=== PATIENT | male | born 1960 | race Caucasian/White ===

== ENCOUNTER 2017-05-15 10:42 | Emergency (ER) | payer MEDICARE, OTHER ==
[~2017-05-15] VITALS: Ht 182.9 cm; Wt 213.2 kg
[~2017-05-15 10:42] MED LIST: DOXYCYCLINE HY100 MG PO; FLUOXETINE HCL20 M1 PO; GLYBURIDE-METF1 EACH PO; LASIX40 MG PO; METFORMIN HCL500 MG PO; POTASSIUM CHLO20 ME1 PO; POTASSIUM CHLO20 MEQ; PRINIVIL20 MG PO; PYRIDIUM100 MG PO; SIMVASTATIN20 MG PO
[2017-05-15 13:57] LABS: BASOPHILS % 0.4 % (0.0-1.0); EOSINOPHILS # (AUTO) 0.1 (0.0-0.4); HEMATOCRIT 44.6 % (38.2-49.6); HEMOGLOBIN 14.8 g/dL (14.0-18.0); LYMPHOCYTES # (AUTO) 1.7 (1.0-3.2); LYMPHOCYTES % 15.2 % (18.0-39.1); MEAN CORPUSCULAR HEMOGLOBIN 27.2 pg (28-32); MEAN CORPUSCULAR HGB CONC 33.2 g/dL (31-35); MEAN CORPUSCULAR VOLUME 81.8 fL (81-99); MONOCYTES # (AUTO) 0.9 (0.2-0.8); NEUTROPHILS # (AUTO) 8.2 (2.1-6.9); NEUTROPHILS % 74.9 % (38.7-80.0); PLATELET COUNT 313 x10e3/uL (140-360); RED BLOOD COUNT 5.45 x10e6/uL (4.3-5.7); RED CELL DISTRIBUTION WIDTH 13.2 % (11.7-14.4)
[2017-05-15 14:22] LABS: ALANINE AMINOTRANSFERASE 11 IU/L (0-55); ALBUMIN 3.2 g/dL (3.5-5.0); ALBUMIN/GLOBULIN RATIO 0.6 (0.8-2.0); ALKALINE PHOSPHATASE 73 IU/L (40-150); ANION GAP 12.6 mmol/L (8-16); BLOOD UREA NITROGEN 9 mg/dL (7-26); BUN/CREATININE RATIO 10 (6-25); CALCIUM 9.3 mg/dL (8.4-10.2); CARBON DIOXIDE 26 mmol/L (22-29); CHLORIDE 98 mmol/L (98-107); CREATININE, SERUM 0.87 mg/dL (0.72-1.25); EST GLOMERULAR FILTRATION RATE > 60 ML/MIN (60-); GLUCOSE 185 mg/dL (74-118); POTASSIUM 3.6 mmol/L (3.5-5.1); SODIUM 133 mmol/L (136-145)
== END 2017-05-15 18:38 | disposition home or self-care (01) ==
LOC: ER 10:42
DX: L02.415 Cutaneous abscess of right lower limb (principal); L03.115 Cellulitis of right lower limb; I10 Essential (primary) hypertension; E11.9 Type 2 diabetes mellitus without complications; E78.5 Hyperlipidemia, unspecified; K21.9 Gastro-esophageal reflux disease without esophagitis; E66.9 Obesity, unspecified
CPT/HCPCS: 36415; 80053; 85025; 99283

== ENCOUNTER 2017-06-29 08:08 | Emergency (ER) | payer MEDICARE ==
[~2017-06-29] VITALS: Ht 182.9 cm; Wt 213.2 kg
[2017-06-29] MEDS: CLINDAMYCIN PHOS 600 MG/ 4 ML VIAL IM ONE ×2 (09:42→10:00)
[2017-06-29 10:04] VITALS: BP 116/66
[2017-06-29] MEDS ORDERED: CLINDAMYCIN PHOS 600 MG/ 4 ML VIAL IM ONE (10:30)
== END 2017-06-29 10:21 | disposition home or self-care (01) ==
LOC: ER 08:08
DX: L03.221 Cellulitis of neck (principal); I10 Essential (primary) hypertension; E11.9 Type 2 diabetes mellitus without complications; E78.5 Hyperlipidemia, unspecified
CPT/HCPCS: 99282

== ENCOUNTER 2017-09-23 14:31 | Emergency (ER) | payer MEDICARE ==
[~2017-09-23] VITALS: Ht 182.9 cm; Wt 186.0 kg
--- OUTSIDE RECORDS SUMMARY | 2017-09-23 14:34 | XMS REPORT | Continuity of Care Document ---
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 No 03/27/12 11:18am If yes, is advance directive on file with [facility]? No 12/11/08 8:24am If not on file with [facility] will patient provide a copy? No 03/27/12 10:03am Do you have a Directive to Physician? No 06/29/17 8:58am Do you have a Medical Power of Director Of Trauma? No 06/29/17 8:58am Do you have an out of hospital Do Not Resuscitate Order? No 06/29/17 8:58am Do you have any special needs we should be aware of? No 06/29/17 8:58am Do you have a support person here with you today? No 06/29/17 8:58am Did patient receive Notice of Privacy Practices? Yes 06/29/17 8:58am Did patient receive patient rights and responsibilities? Yes 06/29/17 8:58am Problems Medical Problem Onset Date Status Cellulitis Unknown Acute Subcutaneous abscess Unknown Acute Medications Current Home Medications Medication Dose Units Route Directions Days Qty Instructions Start Date Doxycycline Hyclate 100 Mg Capsule 100 Mg Oral Twice A Day Fluoxetine Hcl 20 Mg Tablet 20 Mg Oral Daily Furosemide (Lasix) 40 Mg Tablet 40 Mg Oral Daily Lisinopril (Prinivil) 20 Mg Tablet 20 Mg Oral Twice A Day Metformin Hcl 500 Mg Tablet 500 Mg Oral Twice A Day 60 Tab Phenazopyridine Hcl (Pyridium) 100 Mg Tablet 200 Mg Oral Three Times A Day Potassium Chloride 20 Meq Tab.er.prt 20 Meq Oral Daily Simvastatin 20 Mg Tablet 20 Mg Oral Daily Past Home Medications Medication Directions Ordered Status Glyburide/Metformin Hcl (Glyburide-Metformin 2.5-500 Mg) 1 Each Tablet, 2.5 - 500 Mg Oral Twice A Day Discontinued Social History Social History Problem Response Recorded Date/Time Onset Date Status Hx Psychiatric Problems Yes 03/27/2012 11:18am Not Applicable Not Applicable Hx Depression Yes 03/27/2012 11:18am Not Applicable Not Applicable Smoking Status Start Date Stop Date Never Smoker Hospital Discharge Instructions No hospital discharge instruction information available. Plan of Care Discharge Date 06/29/17 10:21am Disposition HOME, SELF-CARE Condition at Discharge Improved Instructions/Education Provided Cellulitis Forms Provided Work/School Excuse Prescriptions See Medication Section Referrals HOMERO MARTINI MD Address: [address] [place] [id number] Additional Instructions/Education Diagnosis: Cellulitis of the neck Prescription: Cleocin 600 mg every 8 hours Take medication as directed. Be sure you finish all your antibiotics. Follow up with your doctor in 2-3 days if needed. Return to ER for worsening symptoms or any other concerns or problems Functional Status No functional status information available. Allergies, Adverse Reactions, Alerts Allergen Type Severity Reaction Status Last Updated Penicillin Allergy Unknown Active 05/15/17 PENIC Allergy Unknown Active 05/15/17 Immunizations No immunization information available. Vital Signs Acute Vital Signs Vital Response Date/Time Temperature (Fahrenheit) 98.2 degrees F (97.6 - 99.5) 06/29/2017 10:04am Pulse Pulse Rate (adult) 73 bpm (60 - 90) 06/29/2017 10:04am Respiratory Rate 16 bpm (12 - 24) 06/29/2017 10:04am Blood Pressure 116/66 mm Hg 06/29/2017 10:04am Height 6 ft 0 in 06/29/2017 8:18am Weight 470 lb 06/29/2017 8:18am Body Mass Index 63.7 kg/m^2 06/29/2017 8:18am Results Laboratory Results Test Name Result Units Flags Reference Collection Date/Time Result Date/ Time Comments White Blood Count 10.91 x10e3/uL H 4.8-10.8 05/15/2017 12:52pm 2017 1:57pm Red Blood Count 5.45 x10e6/uL 4.3-5.7 05/15/2017 12:52pm 05/15/2017 1: 57pm Hemoglobin 14.8 g/dL 14.0-18.0 05/15/2017 12:52pm 05/15/2017 1:57pm Hematocrit 44.6 % 38.2-49.6 05/15/2017 12:52pm 05/15/2017 1:57pm Mean Corpuscular Volume 81.8 fL 81-99 05/15/2017 12:52pm 05/15/2017 1: 57pm Mean Corpuscular Hemoglobin 27.2 pg L 28-32 05/15/2017 12:52pm 2017 1:57pm Mean Corpuscular Hemoglobin Concent 33.2 g/dL 31-35 05/15/2017 12:52pm 05/15/2017 1:57pm Red Cell Distribution Width 13.2 % 11.7-14.4 05/15/2017 12:52pm 2017 1:57pm Platelet Count 313 x10e3/uL 140-360 05/15/2017 12:52pm 05/15/2017 1: 57pm Neutrophils (%) (Auto) 74.9 % 38.7-80.0 05/15/2017 12:52pm 05/15/2017 1 :57pm Lymphocytes (%) (Auto) 15.2 % L 18.0-39.1 05/15/2017 12:52pm 05/15/2017 1:57pm Monocytes (%) (Auto) 8.0 % 4.4-11.3 05/15/2017 12:52pm 05/15/2017 1: 57pm Eosinophils (%) (Auto) 1.0 % 0.0-6.0 05/15/2017 12:52pm 05/15/2017 1: 57pm Basophils (%) (Auto) 0.4 % 0.0-1.0 05/15/2017 12:52pm 05/15/2017 1: 57pm IM GRANULOCYTES % 0.5 % 0.0-1.0 05/15/2017 12:52pm 05/15/2017 1:57pm Neutrophils # (Auto) 8.2 H 2.1-6.9 05/15/2017 12:52pm 05/15/2017 1: 57pm Lymphocytes # (Auto) 1.7 1.0-3.2 05/15/2017 12:52pm 05/15/2017 1: 57pm Monocytes # (Auto) 0.9 H 0.2-0.8 05/15/2017 12:52pm 05/15/2017 1:57pm Eosinophils # (Auto) 0.1 0.0-0.4 05/15/2017 12:52pm 05/15/2017 1: 57pm Basophils # (Auto) 0.0 0.0-0.1 05/15/2017 12:52pm 05/15/2017 1:57pm Absolute Immature Granulocyte (auto 0.06 x10e3/uL 0-0.1 05/15/2017 12: 52pm 05/15/2017 1:57pm Sodium Level 133 mmol/L L 136-145 05/15/2017 12:52pm 05/15/2017 2:26pm Potassium Level 3.6 mmol/L 3.5-5.1 05/15/2017 12:52pm 05/15/2017 2: 26pm Chloride Level 98 mmol/L 98-107 05/15/2017 12:52pm 05/15/2017 2:26pm Carbon Dioxide Level 26 mmol/L 22-29 05/15/2017 12:52pm 05/15/2017 2: 26pm Anion Gap 12.6 mmol/L 8-16 05/15/2017 12:52pm 05/15/2017 2:26pm Blood Urea Nitrogen 9 mg/dL 7-05/15/2017 12:52pm 05/15/2017 2:26pm Creatinine 0.87 mg/dL 0.72-1.25 05/15/2017 12:52pm 05/15/2017 2:26pm BUN/Creatinine Ratio 10 6-25 05/15/2017 12:52pm 05/15/2017 2:26pm Estimat Glomerular Filtration Rate > 60 ML/MIN 60- 05/15/2017 12:52pm 05/15/2017 2:26pm Ranges were taken from the National Kidney Disease Education Program and the National Kidney Foundation literature. Reference ranges: 60 or greater: Normal 16-59 (for 3 consecutive months): Chronic kidney disease 15 or less: Kidney failure Glucose Level 185 mg/dL H 74-118 05/15/2017 12:52pm 05/15/2017 2:26pm Calcium Level 9.3 mg/dL 8.4-10.2 05/15/2017 12:52pm 05/15/2017 2:26pm Total Bilirubin 0.8 mg/dL 0.2-1.2 05/15/2017 12:52pm 05/15/2017 2:26pm Aspartate Amino Transf (AST/SGOT) 11 IU/L 5-34 05/15/2017 12:52pm 05/15 2:26pm Alanine Aminotransferase (ALT/SGPT) 11 IU/L 0-55 05/15/2017 12:52pm 03/2018 2:26pm Total Protein 8.2 g/dL H 6.5-8.1 05/15/2017 12:52pm 05/15/2017 2:26pm Albumin 3.2 g/dL L 3.5-5.0 05/15/2017 12:52pm 05/15/2017 2:26pm Globulin 5.0 g/dL H 2.3-3.5 05/15/2017 12:52pm 05/15/2017 2:26pm Albumin/Globulin Ratio 0.6 L 0.8-2.0 05/15/2017 12:52pm 05/15/2017 2: 26pm Alkaline Phosphatase 73 IU/L 40-150 05/15/2017 12:52pm 05/15/2017 2: 26pm Procedures Procedure Status Date Provider(s) DRAINAGE OF SKIN ABSCESS Completed 05/15/17 CNOCEPCIÓN PHILLIP MD Encounters Encounter Location Arrival/Admit Date Discharge/Depart Date Attending Provider Departed Emergency Room [facility] 06/29/17 8:08am 10:21am ASUNCION SARABIA MD Departed Emergency Room [facility] 05/15/17 10:42am 05/15 6:38pm CONCEPCIÓN PHILLIP MD
[2017-09-23] MEDS ORDERED: ADENOSINE 6MG/2ML 4 ML ONE (14:41)
[2017-09-23] MEDS ORDERED: SODIUM CHLORIDE 0.9% 1000ML 1,000 ML ONE (14:42)
[2017-09-23] MEDS ORDERED: ADENOSINE 6 MG/2 ML VIAL IV ONE (14:45)
[2017-09-23] MEDS ORDERED: ASPIRIN 81 MG CHEW TAB PO ONE (14:45)
[2017-09-23 14:57] LABS: BASOPHILS # (AUTO) 0.1 (0.0-0.1); BASOPHILS % 0.8 % (0.0-1.0); EOSINOPHILS # (AUTO) 0.2 (0.0-0.4); EOSINOPHILS % 1.9 % (0.0-6.0); HEMATOCRIT 42.6 % (38.2-49.6); HEMOGLOBIN 14.1 g/dL (14.0-18.0); LYMPHOCYTES # (AUTO) 1.8 (1.0-3.2); LYMPHOCYTES % 19.1 % (18.0-39.1); MEAN CORPUSCULAR HEMOGLOBIN 27.5 pg (28-32); MEAN CORPUSCULAR HGB CONC 33.1 g/dL (31-35); MONOCYTES # (AUTO) 0.7 (0.2-0.8); MONOCYTES % 7.5 % (4.4-11.3); NEUTROPHILS # (AUTO) 6.5 (2.1-6.9); NEUTROPHILS % 70.3 % (38.7-80.0); PLATELET COUNT 244 x10e3/uL (140-360); RED BLOOD COUNT 5.13 x10e6/uL (4.3-5.7); RED CELL DISTRIBUTION WIDTH 13.3 % (11.7-14.4)
[2017-09-23 15:05] LABS: INR 1.16; PROTHROMBIN TIME 13.9 seconds (11.9-14.5)
[2017-09-23 15:06] LABS: PARTIAL THROMBOPLASTIN TIME 32.6 seconds (23.8-35.5)
[2017-09-23 15:13] LABS: ALANINE AMINOTRANSFERASE 16 IU/L (0-55); ALBUMIN 3.5 g/dL (3.5-5.0); ALBUMIN/GLOBULIN RATIO 0.8 (0.8-2.0); ALKALINE PHOSPHATASE 77 IU/L (40-150); BLOOD UREA NITROGEN 15 mg/dL (7-26); BUN/CREATININE RATIO 12 (6-25); CALCIUM 9.5 mg/dL (8.4-10.2); CARBON DIOXIDE 22 mmol/L (22-29); CHLORIDE 101 mmol/L (98-107); CREATINE KINASE 198 IU/L (30-200); CREATININE, SERUM 1.26 mg/dL (0.72-1.25); EST GLOMERULAR FILTRATION RATE 59 ML/MIN (60-); GLUCOSE 320 mg/dL (74-118); SODIUM 133 mmol/L (136-145)
--- NOTE | 2017-09-23 15:16 | Diagnostic Imaging Report ---
PROCEDURE:CHEST SINGLE (PORTABLE) TECHNIQUE:Portable AP chest totaling 2 radiographs INDICATION:Chest pain COMPARISON:None. FINDINGS: The lungs are clear and symmetrically inflated. No pleural effusions. Normal heart size, mediastinal contour, and pulmonary vasculature for technique. Intact skeleton. CONCLUSION: No acute abnormality. Dictated by: Emre Slade M.D. on 09/23/2017 at 15:18 Electronically approved by: Emre Slade M.D. on 09/23/2017 at 15:18
[2017-09-23 16:58] LABS: BILIRUBIN,URINE NEGATIVE (NEGATIVE); CLARITY,URINE CLOUDY (CLEAR); COLOR,URINE YELLOW (YELLOW); KETONES,URINE NEGATIVE (NEGATIVE); LEUKOCYTE ESTERASE ,URINE NEGATIVE (NEGATIVE); NITRITE,URINE NEGATIVE (NEGATIVE); PROTEIN,URINE DIPSTICK 1+ (NEGATIVE); URINE UROBILINOGEN 0.2 mg/dL (0.2 - 1)
[2017-09-23 17:13] LABS: EPITHELIAL CELLS,URINE RARE /LPF; MUCUS,URINE FEW (RARE); RBC,URINE 0-5 /HPF (0-5)
[2017-09-23] MEDS ORDERED: INSULIN REGULAR, HUMAN 100 UNIT/1 ML 3ML VIAL SQ ONE (18:45)
[2017-09-23 18:53] VITALS: BP 124/66
== END 2017-09-23 19:04 | disposition home or self-care (01) ==
LOC: ER 14:31
DX: I47.1 Supraventricular tachycardia (principal); R00.2 Palpitations; I10 Essential (primary) hypertension; E11.9 Type 2 diabetes mellitus without complications; E66.01 Morbid (severe) obesity due to excess calories; Z88.0 Allergy status to penicillin
CPT/HCPCS: 36415; 71045; 80053; 81001; 82550; 82553; 83880; 84443; 84484; 85025; 85379; 85610; 85730; 87086; 93005 ×2; 99284; J0153; J7030

== ENCOUNTER 2019-01-15 12:07 | Inpatient (IN) | payer MEDICARE ==
[~2019-01-15] VITALS: Ht 182.9 cm; Wt 214.1 kg
--- OUTSIDE RECORDS SUMMARY | 2019-01-15 12:10 | XMS REPORT ---
Author Author [facility] Address Unknown Phone Unavailable Care Team Providers Care Sequins Winder Name Role Phone Chrissy KOHLER Unavailable Unavailable Payers Payer Name Policy Type Policy Number Effective Date Expiration Date Problems This patient has no known problems. Allergies, Adverse Reactions, Alerts Allergy Name Allergy Type Status Severity Reaction(s) Onset Date Inactive Date Treating Clinician Comments Penicillins DA Active MO 2018-07-10 00:00:00 No Known Drug Intolerances DA Active U 2018 00:00:00 No Known Contrast Allergies DA Active U 2003-08-12 00:00:00 No Known Drug Allergies DA Active U 2003-08-12 00:00:00 No Known Food Allergies DA Active U 2003-08-12 00:00:00 No Known Other Allergies DA Active U 2003-08-12 00:00:00 Medications This patient has no known medications. Results Test Description Test Time Test Comments Text Results Atomic Results Result Comments CHEST SINGLE (PORTABLE) [facility] [address] [address] Patient Name: NNEKA CANALES MR #: [id number] : 1960 Age/Sex: 57/M Req #: [id number] Adm Physician: Ordered by: CRUZ GARCIA PRODUCT SAFETY ASSOCIATE Report #: [id number] Location: ER Room/Bed: Procedure: [id number] DX/CHEST SINGLE (PORTABLE) Exam Date: 09/23/17 Exam Time: 1500 REPORT STATUS: Signed PROCEDURE: CHEST SINGLE (PORTABLE) TECHNIQUE: Portable AP chest totaling 2 radiographs INDICATION: Chest pain COMPARISON: None. FINDINGS: The lungs are clear and symmetrically inflated. No pleural effusions. Normal heart size, mediastinal contour, and pulmonary vasculature for technique. Intact skeleton. CONCLUSION: No acute abnormality. Dictated by: Fito Slade M.D. on 09/23/2017 at 15:18 Electronically approved by: Fito Slade M.D. on 09/23/2017 at 15:18 Dictated By: FITO SLADE MD [id number] Transcribed By: JESSICA on 09/23/17 1518 COPY TO: CRUZ GARCIA NP
[2019-01-15] MEDS ORDERED: SODIUM CHLORIDE 0.9% 1000ML 1,000 ML IV SCH ×2 (12:30→15:01)
[2019-01-15] MEDS ORDERED: VANCOMYCIN 1GM/NS 250 ML 250 ML IV ONE (13:00)
[2019-01-15 13:54] LABS: BASOPHILS # (AUTO) 0.1 (0.0-0.1); BASOPHILS % 0.5 % (0.0-1.0); EOSINOPHILS # (AUTO) 0.2 (0.0-0.4); EOSINOPHILS % 1.9 % (0.0-6.0); HEMATOCRIT 44.4 % (38.2-49.6); HEMOGLOBIN 14.8 g/dL (14.0-18.0); LYMPHOCYTES # (AUTO) 0.9 (1.0-3.2); LYMPHOCYTES % 8.9 % (18.0-39.1); MEAN CORPUSCULAR HEMOGLOBIN 28.1 pg (28-32); MEAN CORPUSCULAR HGB CONC 33.3 g/dL (31-35); MEAN CORPUSCULAR VOLUME 84.3 fL (81-99); MONOCYTES # (AUTO) 0.8 (0.2-0.8); MONOCYTES % 7.6 % (4.4-11.3); NEUTROPHILS # (AUTO) 8.4 (2.1-6.9); NEUTROPHILS % 80.1 % (38.7-80.0); PLATELET COUNT 326 x10e3/uL (140-360); RED BLOOD COUNT 5.27 x10e6/uL (4.3-5.7); RED CELL DISTRIBUTION WIDTH 13.4 % (11.7-14.4)
[2019-01-15 14:15] LABS: ALANINE AMINOTRANSFERASE 16 IU/L (0-55); ALBUMIN 3.7 g/dL (3.5-5.0); ALBUMIN/GLOBULIN RATIO 0.8 (0.8-2.0); ALKALINE PHOSPHATASE 72 IU/L (40-150); BLOOD UREA NITROGEN 14 mg/dL (7-26); BUN/CREATININE RATIO 13 (6-25); CALCIUM 9.9 mg/dL (8.4-10.2); CARBON DIOXIDE 28 mmol/L (22-29); CHLORIDE 97 mmol/L (98-107); CREATININE, SERUM 1.07 mg/dL (0.72-1.25); EST GLOMERULAR FILTRATION RATE > 60 ML/MIN (60-); GLUCOSE 152 mg/dL (74-118); SODIUM 135 mmol/L (136-145)
[2019-01-15] MEDS ORDERED: MORPHINE SULFATE 5 MG/ML VIAL IV ONE (15:15)
[2019-01-15] MEDS ORDERED: CLINDAMYCIN 600MG / 50ML 50 ML IV ONE ×2 (15:15→16:08)
[2019-01-15] MEDS ORDERED: MORPHINE SULFATE 2 MG/ML SYR 1ML IV PRN (15:15)
[2019-01-15] MEDS ORDERED: MORPHINE SULFATE INJ 4 MG/ML INJ 1ML IV ONE (15:15)
[2019-01-15] MEDS ORDERED: DEXTROSE 50% SYRINGE 50 ML IV PRN ×2 (15:45→17:00)
--- NOTE | 2019-01-15 16:35 | Diagnostic Imaging Report ---
EXAM: Limited soft tissue Ultrasound INDICATION: Suspected abscess of face patient had cyst drained above right eye COMPARISON: None. TECHNIQUE: Transverse and longitudinal images of the upper abdomen were obtained. FINDINGS: No masses, or fluid collections are identified. No increased vascularity. Minimal subcutaneous edema is noted in area of swelling. IMPRESSION: No masses or fluid collections are identified. Signed by: Dr. Jared Suarez M.D. on 01/15/2019 4:32 PM
[2019-01-15] MEDS: LISINOPRIL 20 MG TAB PO SCH (17:00)
[2019-01-15] MEDS: INSULIN LISPRO 100 UNIT/1 ML 3ML VIAL SQ SCH ×2 (18:14→21:00)
--- NOTE | 2019-01-15 20:30 | NUR ---
Patient arrived to the floor via w/c.
[2019-01-15 20:32] VITALS: BP 116/59
--- NOTE | 2019-01-15 20:57 | NUR ---
Received report from ER nurse.
[2019-01-15] MEDS ORDERED: INSULIN REGULAR, HUMAN 100 UNIT/1 ML 3ML VIAL SQ SCH (21:00)
[2019-01-15 22:18] VITALS: BP 116/59
[2019-01-15] MEDS: ONDANSETRON HCL INJ 2MG/ML 2ML 2 MG/ML VIAL IV PRN (22:39)
[2019-01-15] MEDS: MORPHINE SULFATE INJ 4 MG/ML INJ 1ML IV PRN (22:39)
[2019-01-16] VITALS (7 sets, daily range): BP systolic 94–148; BP diastolic 50–83
[2019-01-16] MEDS: VANCOMYCIN 1GM/NS 250 ML 250 ML IV SCH ×2 (01:00→13:18)
[2019-01-16] MEDS ORDERED: HYDROCODONE/APAP 10MG-325MG TAB PO PRN (08:30)
[2019-01-16] MEDS ORDERED: FUROSEMIDE 40 MG TAB PO SCH (09:00)
[2019-01-16] MEDS: FUROSEMIDE INJ 10 MG/ML 4 ML VIAL IV SCH ×2 (09:56→13:18)
[2019-01-16] MEDS: METFORMIN HCL 500 MG TAB PO SCH ×2 (09:56→17:00)
[2019-01-16] MEDS: LISINOPRIL 20 MG TAB PO SCH ×2 (09:56→17:00)
[2019-01-16] MEDS: FLUOXETINE HCL 20 MG CAP PO SCH (09:57)
[2019-01-16] MEDS: POTASSIUM CHLORIDE 20 MEQ TAB CR PO SCH (09:58)
[2019-01-16] MEDS: INSULIN LISPRO 100 UNIT/1 ML 3ML VIAL SQ SCH ×4 (10:23→20:47)
[2019-01-16] MEDS: AZTREONAM 1 GM/NS 50 ML 50 ML IV SCH ×2 (14:00→20:38)
--- NOTE | 2019-01-16 19:09 | NUR ---
received report from day nurse. patient is resting comfortably in bed. bed is in lowest position and call charles is within reach. will continue to monitor patient.
[2019-01-16] MEDS: SIMVASTATIN 20 MG TAB PO SCH (20:38)
[2019-01-16] MEDS: ONDANSETRON HCL INJ 2MG/ML 2ML 2 MG/ML VIAL IV PRN (20:46)
[2019-01-16] MEDS: MORPHINE SULFATE INJ 4 MG/ML INJ 1ML IV PRN (20:46)
[2019-01-17] VITALS (9 sets, daily range): BP systolic 92–134; BP diastolic 53–71
[2019-01-17] MEDS: VANCOMYCIN 1GM/NS 250 ML 250 ML IV SCH ×2 (02:48→14:08)
[2019-01-17] MEDS: AZTREONAM 1 GM/NS 50 ML 50 ML IV SCH ×3 (04:56→21:10)
[2019-01-17 06:07] LABS: BASOPHILS % 0.5 % (0.0-1.0); EOSINOPHILS # (AUTO) 0.3 (0.0-0.4); EOSINOPHILS % 3.2 % (0.0-6.0); HEMATOCRIT 40.2 % (38.2-49.6); HEMOGLOBIN 12.9 g/dL (14.0-18.0); LYMPHOCYTES # (AUTO) 1.1 (1.0-3.2); LYMPHOCYTES % 13.8 % (18.0-39.1); MEAN CORPUSCULAR HEMOGLOBIN 27.3 pg (28-32); MEAN CORPUSCULAR HGB CONC 32.1 g/dL (31-35); MEAN CORPUSCULAR VOLUME 85.2 fL (81-99); MONOCYTES # (AUTO) 0.7 (0.2-0.8); NEUTROPHILS # (AUTO) 5.9 (2.1-6.9); NEUTROPHILS % 72.8 % (38.7-80.0); PLATELET COUNT 276 x10e3/uL (140-360); RED BLOOD COUNT 4.72 x10e6/uL (4.3-5.7); RED CELL DISTRIBUTION WIDTH 13.6 % (11.7-14.4)
[2019-01-17 06:34] LABS: ANION GAP 11.1 mmol/L (8-16); BLOOD UREA NITROGEN 13 mg/dL (7-26); BUN/CREATININE RATIO 15 (6-25); CALCIUM 9.4 mg/dL (8.4-10.2); CARBON DIOXIDE 29 mmol/L (22-29); CHLORIDE 99 mmol/L (98-107); CREATININE, SERUM 0.85 mg/dL (0.72-1.25); EST GLOMERULAR FILTRATION RATE > 60 ML/MIN (60-); GLUCOSE 172 mg/dL (74-118); POTASSIUM 4.1 mmol/L (3.5-5.1); SODIUM 135 mmol/L (136-145)
--- NOTE | 2019-01-17 06:38 | NUR ---
report given to day nurse. patient is resting comfortably in bed. bed is in lowest position and call light is within reach.
[2019-01-17] MEDS: INSULIN LISPRO 100 UNIT/1 ML 3ML VIAL SQ SCH ×4 (07:30→21:37)
[2019-01-17] MEDS: LISINOPRIL 20 MG TAB PO SCH ×2 (08:41→16:39)
[2019-01-17] MEDS: FUROSEMIDE INJ 10 MG/ML 4 ML VIAL IV SCH ×2 (08:41→14:08)
[2019-01-17] MEDS: METFORMIN HCL 500 MG TAB PO SCH ×2 (08:41→16:39)
[2019-01-17] MEDS: FLUOXETINE HCL 20 MG CAP PO SCH (08:41)
[2019-01-17] MEDS: POTASSIUM CHLORIDE 20 MEQ TAB CR PO SCH (08:42)
--- NOTE | 2019-01-17 18:55 | NUR ---
RECEIVED REPORT FROM DAY NURSE. PATIENT IS RESTING COMFORTABLY IN BED. BED IS IN LOWEST POSITION AND CALL ADKINS IS WITHIN REACH. WILL CONTINUE TO MONITOR PATIENT.
[2019-01-17] MEDS: SIMVASTATIN 20 MG TAB PO SCH (21:10)
[2019-01-18] VITALS (7 sets, daily range): BP systolic 94–115; BP diastolic 51–71
[2019-01-18] MEDS: VANCOMYCIN 1GM/NS 250 ML 250 ML IV SCH ×2 (01:13→12:11)
[2019-01-18] MEDS: AZTREONAM 1 GM/NS 50 ML 50 ML IV SCH ×3 (05:09→21:47)
[2019-01-18 05:58] LABS: BASOPHILS % 0.4 % (0.0-1.0); EOSINOPHILS # (AUTO) 0.2 (0.0-0.4); EOSINOPHILS % 2.6 % (0.0-6.0); HEMOGLOBIN 12.5 g/dL (14.0-18.0); LYMPHOCYTES # (AUTO) 1.3 (1.0-3.2); LYMPHOCYTES % 14.1 % (18.0-39.1); MEAN CORPUSCULAR HEMOGLOBIN 28.1 pg (28-32); MEAN CORPUSCULAR HGB CONC 32.9 g/dL (31-35); MEAN CORPUSCULAR VOLUME 85.4 fL (81-99); MONOCYTES # (AUTO) 0.7 (0.2-0.8); MONOCYTES % 8.2 % (4.4-11.3); NEUTROPHILS # (AUTO) 6.7 (2.1-6.9); NEUTROPHILS % 73.8 % (38.7-80.0); PLATELET COUNT 298 x10e3/uL (140-360); RED BLOOD COUNT 4.45 x10e6/uL (4.3-5.7); RED CELL DISTRIBUTION WIDTH 13.4 % (11.7-14.4)
[2019-01-18 06:17] LABS: ANION GAP 11.9 mmol/L (8-16); BLOOD UREA NITROGEN 15 mg/dL (7-26); BUN/CREATININE RATIO 17 (6-25); CALCIUM 9.2 mg/dL (8.4-10.2); CARBON DIOXIDE 28 mmol/L (22-29); CHLORIDE 98 mmol/L (98-107); EST GLOMERULAR FILTRATION RATE > 60 ML/MIN (60-); GLUCOSE 176 mg/dL (74-118); POTASSIUM 3.9 mmol/L (3.5-5.1); SODIUM 134 mmol/L (136-145)
--- NOTE | 2019-01-18 06:57 | NUR ---
REPORT GIVEN TO DAY NURSE. PATIENT IS RESTING COMFORTABLY IN BED. BED IS IN LOWEST POSITION AND CALL LIGHT IS WITHIN REACH.
[2019-01-18] MEDS: LISINOPRIL 20 MG TAB PO SCH ×2 (08:00→17:00)
[2019-01-18] MEDS: INSULIN LISPRO 100 UNIT/1 ML 3ML VIAL SQ SCH ×4 (08:00→21:47)
[2019-01-18] MEDS: FUROSEMIDE INJ 10 MG/ML 4 ML VIAL IV SCH ×2 (08:00→12:11)
[2019-01-18] MEDS: METFORMIN HCL 500 MG TAB PO SCH ×2 (08:00→18:40)
[2019-01-18] MEDS: FLUOXETINE HCL 20 MG CAP PO SCH (08:00)
[2019-01-18] MEDS: POTASSIUM CHLORIDE 20 MEQ TAB CR PO SCH (08:00)
--- NOTE | 2019-01-18 10:06 | NUR ---
WOUNDCARE CONSULT FOR 58YO MALE HX VEINOUS STASIS, RT SIDE SCALP ABSCESS LAB: WBC-9.07,GLUCOSE-131,EQAP9N-4.7,ALB-3.7 WOUND CULTURE OF RT SCALP PENDING ASSESSMENT FINDINGS: RED RAISED SCALP AREA RT SIDE HEAD OPEN SLT DRAINING CENTER MEASURING .5CM X.5CM WITH .2 CM DEPTH BLANCHABLE RED SURROUNDING SKIN COOL TO TOUCH NOTED ALSO EDEMATOUS BILATERAL LOWER EXTREM WITH HEALING ABRASIONS AND DRY SKIN LOTION APPLIED AT BED SIDE PT TEACHING DONE SURROUNDING SKIN CARE RECOMENDATIONS: NURSING TO CONTINUE TO ENCOURAGE PT OUT OF BED NURSING TO ASSIST PT WITH DAILY FOOT CARE NURSING TO APPLY BACTROBAN OINTMENT DAILY TO HEAD RT SCALP ABSCESS Addendum: 01/18/19 at 1021 by Demetrio Hassan RN Amended: Links added.
[2019-01-18] MEDS ORDERED: SODIUM CHLORIDE 0.9% 250ML 250 ML ONE ×2 (11:48→21:29)
--- NOTE | 2019-01-18 14:00 | NUR ---
report given to [facility] 2 unit for patient transfer at this time. patient aware of room change and in no distress.
--- NOTE | 2019-01-18 14:55 | NUR ---
Patient arrived to room 208 in wheelchair, he is ambulatory, pain is minimal, 08/12, he has a wound on the left side of his head that is draining and covered by 4x4 Addendum: 01/19/19 at 0758 by Jona Joshi RN right side scalp not left
--- NOTE | 2019-01-18 17:12 | NUR ---
Patient was given insulin and his meds with no issues, he is alert and ambulatory.
--- NOTE | 2019-01-18 19:10 | NUR ---
walking rounds complete, patient is watching TV
[2019-01-18] MEDS: SIMVASTATIN 20 MG TAB PO SCH (21:27)
[2019-01-19] VITALS (8 sets, daily range): BP systolic 124–154; BP diastolic 67–80
[2019-01-19] MEDS: VANCOMYCIN 1GM/NS 250 ML 250 ML IV SCH ×2 (01:35→13:35)
[2019-01-19] MEDS: AZTREONAM 1 GM/NS 50 ML 50 ML IV SCH ×3 (06:21→21:22)
--- NOTE | 2019-01-19 07:09 | NUR ---
pt asleep resp even and unlabored at this time no distress noted, pt aroused to name, pt has family member at bedside, bed alarm in place call light in reach pt npo at this time. Addendum: 01/19/19 at 2111 by Lynn Romano LVN wrong pt. error document, natalie sethi
--- NOTE | 2019-01-19 07:09 | NUR ---
Pt asleep resp even and unlabored at this time no distress noted, pt aroused to name, pt has family member at bedside, bed alarm in place call light in reach.
[2019-01-19] MEDS: FUROSEMIDE INJ 10 MG/ML 4 ML VIAL IV SCH ×2 (08:41→13:35)
[2019-01-19] MEDS: METFORMIN HCL 500 MG TAB PO SCH ×2 (08:41→17:11)
[2019-01-19] MEDS: POTASSIUM CHLORIDE 20 MEQ TAB CR PO SCH (08:42)
[2019-01-19] MEDS: LISINOPRIL 20 MG TAB PO SCH ×2 (08:42→17:11)
[2019-01-19] MEDS: FLUOXETINE HCL 20 MG CAP PO SCH (08:42)
[2019-01-19] MEDS: INSULIN LISPRO 100 UNIT/1 ML 3ML VIAL SQ SCH ×4 (08:46→21:38)
[2019-01-19] MEDS: MUPIROCIN 2% OINT 22 GM TUBE TOP SCH (08:46)
--- NOTE | 2019-01-19 11:20 | NUR ---
pt b/s 65, 1/2 amp of d/50 given. at this time. Addendum: 01/19/19 at 2110 by Lynn Romano LVN wrong pt. error document, natalie sethi
--- NOTE | 2019-01-19 17:45 | NUR ---
pt off unit for procedure, Addendum: 01/19/19 at 2111 by Lynn Romano LVN wrong pt. error document, natalie sethi
--- NOTE | 2019-01-19 18:00 | NUR ---
pt back on unit, Julian with HIDA scan, will have reschedule, 1pm 01/20/2019. pt to be npo after breakfast. Addendum: 01/19/19 at 2111 by Lynn Romano LVN wrong pt. error document, natalie sethi
--- NOTE | 2019-01-19 19:32 | NUR ---
PT IS RESTING IN BED. RESPIRATION IS EVEN AND UNLABORED, NO DISTRESS NOTED. BED IN THE LOWEST POSITION, LOCKED, AND CALL LIGHT WITHIN REACH. WILL CONTINUE TO MONITOR.
--- NOTE | 2019-01-19 19:45 | NUR ---
report given to oncoming nurse. pt stable.
[2019-01-19] MEDS: SIMVASTATIN 20 MG TAB PO SCH (21:20)
[2019-01-20] VITALS (8 sets, daily range): BP systolic 107–163; BP diastolic 58–74
[2019-01-20] MEDS: VANCOMYCIN 1GM/NS 250 ML 250 ML IV SCH ×2 (00:34→12:19)
[2019-01-20] MEDS: AZTREONAM 1 GM/NS 50 ML 50 ML IV SCH ×3 (05:24→22:00)
[2019-01-20] MEDS: INSULIN LISPRO 100 UNIT/1 ML 3ML VIAL SQ SCH ×4 (07:30→20:52)
[2019-01-20] MEDS: MUPIROCIN 2% OINT 22 GM TUBE TOP SCH (09:05)
[2019-01-20] MEDS: FLUOXETINE HCL 20 MG CAP PO SCH (09:05)
[2019-01-20] MEDS: LISINOPRIL 20 MG TAB PO SCH ×2 (09:05→17:19)
[2019-01-20] MEDS: METFORMIN HCL 500 MG TAB PO SCH ×2 (09:05→17:19)
[2019-01-20] MEDS: FUROSEMIDE INJ 10 MG/ML 4 ML VIAL IV SCH ×2 (09:05→12:19)
[2019-01-20] MEDS: POTASSIUM CHLORIDE 20 MEQ TAB CR PO SCH (09:05)
--- NOTE | 2019-01-20 19:25 | NUR ---
Patient received lying in bed. AAO x 4. Patient had no complaints of pain. Respirations even and non-labored. Safety measures implemented. Patient instructed to call for assistance when needed. Call light within reach.
[2019-01-20] MEDS: SIMVASTATIN 20 MG TAB PO SCH (20:52)
--- NOTE | 2019-01-20 22:30 | NUR ---
Wound treatment to right scalp (abscess) done as per MD's orders.
[2019-01-21] VITALS: BP 99/56
--- NOTE | 2019-01-21 00:27 | NUR ---
Blood specimen sent to lab for analysis of Vancomycin trough level.
[2019-01-21] MEDS: VANCOMYCIN 1GM/NS 250 ML 250 ML IV SCH (02:00)
--- NOTE | 2019-01-21 03:12 | NUR ---
IV on left arm infiltrated. Old IV removed with tip intact. New IV inserted in Right AC 20G. Patient tolerated well.
[2019-01-21 04:00] VITALS: BP 121/63
[2019-01-21] MEDS: AZTREONAM 1 GM/NS 50 ML 50 ML IV SCH (05:52)
--- NOTE | 2019-01-21 07:00 | NUR ---
Walking rounds done. Patient resting comfortably. Shift report given to oncoming nurse.
--- NOTE | 2019-01-21 07:10 | NUR ---
RCD PT AT BED PT IS ALERT AND ORIENTED PT RESTING ON BEDIV PATENT BY SALINE FLUSH BED LOW AND LOCKED CALL LIGHT IN REACH
[2019-01-21] MEDS: INSULIN LISPRO 100 UNIT/1 ML 3ML VIAL SQ SCH ×2 (07:30→11:30)
[2019-01-21 07:56] VITALS: BP 134/69
[2019-01-21] MEDS: METFORMIN HCL 500 MG TAB PO SCH (08:00)
[2019-01-21] MEDS: FUROSEMIDE INJ 10 MG/ML 4 ML VIAL IV SCH (08:00)
[2019-01-21 09:00] VITALS: BP 134/69
[2019-01-21] MEDS: LISINOPRIL 20 MG TAB PO SCH (09:00)
[2019-01-21] MEDS: MUPIROCIN 2% OINT 22 GM TUBE TOP SCH (09:00)
[2019-01-21] MEDS: POTASSIUM CHLORIDE 20 MEQ TAB CR PO SCH (09:00)
[2019-01-21] MEDS: FLUOXETINE HCL 20 MG CAP PO SCH (09:00)
[2019-01-21 11:43] VITALS: BP 140/74
--- NOTE | 2019-01-21 12:30 | NUR ---
IMM letter delivered and explained to pt. Pt verbalized understanding. Signed copy placed in chart. Copy to pt.
--- NOTE | 2019-01-22 08:12 | Discharge Summary ---
FINAL DIAGNOSES: 1. Methicillin-resistant Staphylococcus aureus infection of the right scalp abscess, status post drainage. 2. Right eyelid cellulitis. 3. Morbid obesity. 4. Bilateral lower extremity lymphedema. SUMMARY: The patient is a 58-year-old male, came in with an abscess to right scalp area. He also has a right eyelid cellulitis. The patient was placed on vancomycin. Cultures finally came out to be MRSA, sensitive to clindamycin and doxycycline. The patient will go home with doxycycline. He will follow up in the clinic for monitoring. The patient will resume his home medication. MD NICOLE Lo/TALIA /[id number]
== END 2019-01-21 13:15 | disposition home or self-care (01) | DRG 603 ==
LOC: ER 12:07 → ERHOLD 15:01 → IMCU 20:32 → OBSVTOIN 01-16 08:30 → MED/SURG2 01-18 15:13
PROVIDERS: ADMIT Internal Medicine; ATTEND Internal Medicine
DX: L03.811 Cellulitis of head [any part, except face] (principal); Z68.44 Body mass index [BMI] 60.0-69.9, adult; L02.811 Cutaneous abscess of head [any part, except face]; B95.62 Methicillin resistant Staphylococcus aureus infection as the cause of diseases classified elsewhere; H00.033 Abscess of eyelid right eye, unspecified eyelid; E66.01 Morbid (severe) obesity due to excess calories; I89.0 Lymphedema, not elsewhere classified
CPT/HCPCS: 36415; 76536; 80048; 80053; 80202; 82948; 83036; 84443; 85025; 87040; 87071; 87186; 87205; 96372; 99284; G0378; J1940; J2270; J2405; J3370; J7030; J7050

== ENCOUNTER 2021-01-16 05:39 | Emergency (ER) | payer MEDICARE ==
[~2021-01-16] VITALS: Ht 182.9 cm; Wt 188.2 kg
[2021-01-16] MEDS ORDERED: IBUPROFEN 600 MG TAB PO STA (05:43)
[2021-01-16] MEDS ORDERED: PROVENTIL HFA6.7 GM INH (05:50)
[2021-01-16] MEDS ORDERED: IBUPROFEN600 MG PO (05:50)
[2021-01-16] MEDS ORDERED: TESSALON PERLE100 MG PO (05:50)
[2021-01-16] MEDS ORDERED: IBUPROFEN 600 MG TAB ONE (05:54)
== END 2021-01-16 06:01 | disposition home or self-care (01) ==
LOC: ER 05:45
DX: U07.1 COVID-19 (principal); I10 Essential (primary) hypertension; E11.9 Type 2 diabetes mellitus without complications; Z88.0 Allergy status to penicillin
CPT/HCPCS: 99283; U0002

== ENCOUNTER 2021-11-24 09:07 | Emergency (ER) | payer MEDICARE ==
[~2021-11-24] VITALS: Ht 182.9 cm; Wt 188.2 kg
[~2021-11-24 09:07] MED LIST changes: +IBUPROFEN600 MG PO; +PROVENTIL HFA6.7 GM INH; +TESSALON PERLE100 MG PO
[2021-11-24 10:03] VITALS: BP 130/74
== END 2021-11-24 09:25 | disposition home or self-care (01) ==
LOC: ER 09:15
DX: L02.811 Cutaneous abscess of head [any part, except face] (principal); I10 Essential (primary) hypertension; E11.9 Type 2 diabetes mellitus without complications; Z88.0 Allergy status to penicillin; Z79.84 Long term (current) use of oral hypoglycemic drugs; Z79.899 Other long term (current) drug therapy
CPT/HCPCS: 99282

== ENCOUNTER 2022-07-27 06:46 | Inpatient (IN) | payer MEDICARE ==
[~2022-07-27] VITALS: Ht 182.9 cm; Wt 190.5 kg
[2022-07-27] MEDS ORDERED: Vancomycin IV 2 GM in SODIUM CHLORIDE 0.9% 500ML 500 ML IV STA (06:58)
[2022-07-27 07:25] LABS: BASOPHILS # (AUTO) 0.1 (0.0-0.1); BASOPHILS % 0.8 % (0.0-1.0); EOSINOPHILS # (AUTO) 0.2 (0.0-0.4); EOSINOPHILS % 2.6 % (0.0-6.0); HEMATOCRIT 44.8 % (38.2-49.6); HEMOGLOBIN 14.4 g/dL (14.0-18.0); LYMPHOCYTES # (AUTO) 1.8 (1.0-3.2); LYMPHOCYTES % 19.2 % (18.0-39.1); MEAN CORPUSCULAR HEMOGLOBIN 26.9 pg (28-32); MEAN CORPUSCULAR HGB CONC 32.1 g/dL (31-35); MEAN CORPUSCULAR VOLUME 83.7 fL (81-99); MONOCYTES # (AUTO) 0.7 (0.2-0.8); MONOCYTES % 7.9 % (4.4-11.3); NEUTROPHILS # (AUTO) 6.3 (2.1-6.9); NEUTROPHILS % 68.6 % (38.7-80.0); PLATELET COUNT 302 x10e3/uL (140-360); RED BLOOD COUNT 5.35 x10e6/uL (4.3-5.7); RED CELL DISTRIBUTION WIDTH 13.2 % (11.7-14.4)
[2022-07-27 07:41] LABS: ALBUMIN 3.3 g/dL (3.5-5.0); ALBUMIN/GLOBULIN RATIO 0.7 (0.8-2.0); ANION GAP 14.7 mmol/L (8-16); CALCIUM 9.1 mg/dL (8.4-10.2); CREATININE, SERUM 0.97 mg/dL (0.72-1.25); POTASSIUM 3.7 mmol/L (3.5-5.1)
[2022-07-27 07:48] LABS: B-TYPE NATRIURETIC PEPTIDE2 < 10.0 pg/mL (0-100)
[2022-07-27] MEDS ORDERED: SODIUM CHLORIDE FLUSH 10 ML SYR INJ PRN (08:45)
[2022-07-27] MEDS ORDERED: CEFEPIME 2 GM in SODIUM CHLORIDE 0.9% 100 ML IV ONE (08:45)
[2022-07-27] MEDS ORDERED: FUROSEMIDE INJ 10 MG/ML 4 ML VIAL IV ONE (08:45)
[2022-07-27] MEDS ORDERED: Morphine 4mg INJECTION 4 MG/ML INJ IV PRN (08:45)
[2022-07-27] MEDS ORDERED: ONDANSETRON HCL INJ 2MG/ML 2ML 2 MG/ML VIAL IV PRN (08:45)
[2022-07-27 11:16] VITALS: BP 103/89
[2022-07-27 11:43] VITALS: BP 103/89
[2022-07-27 13:09] VITALS: BP 148/77
[2022-07-27] MEDS ORDERED: FUROSEMIDE INJ 10 MG/ML 4 ML VIAL IV SCH (15:00)
[2022-07-27] MEDS ORDERED: DEXTROSE 50% SYRINGE 50 ML IV PRN (16:15)
[2022-07-27] MEDS: INSULIN LISPRO 100 UNIT/1 ML 3ML VIAL SQ SCH ×2 (16:19→22:12)
[2022-07-27 16:33] VITALS: BP 125/63
[2022-07-27 20:00] VITALS: BP 123/72
[2022-07-28] VITALS (7 sets, daily range): BP systolic 117–139; BP diastolic 56–78
[2022-07-28] MEDS ORDERED: FUROSEMIDE INJ 10 MG/ML 4 ML VIAL IV SCH (06:00)
[2022-07-28 06:12] LABS: BASOPHILS # (AUTO) 0.1 (0.0-0.1); BASOPHILS % 0.8 % (0.0-1.0); EOSINOPHILS # (AUTO) 0.3 (0.0-0.4); EOSINOPHILS % 3.8 % (0.0-6.0); HEMATOCRIT 42.5 % (38.2-49.6); HEMOGLOBIN 13.9 g/dL (14.0-18.0); LYMPHOCYTES # (AUTO) 1.7 (1.0-3.2); LYMPHOCYTES % 21.8 % (18.0-39.1); MEAN CORPUSCULAR HEMOGLOBIN 27.2 pg (28-32); MEAN CORPUSCULAR HGB CONC 32.7 g/dL (31-35); MEAN CORPUSCULAR VOLUME 83.2 fL (81-99); MONOCYTES # (AUTO) 0.7 (0.2-0.8); MONOCYTES % 8.4 % (4.4-11.3); NEUTROPHILS # (AUTO) 5.1 (2.1-6.9); NEUTROPHILS % 64.6 % (38.7-80.0); PLATELET COUNT 296 x10e3/uL (140-360); RED BLOOD COUNT 5.11 x10e6/uL (4.3-5.7); RED CELL DISTRIBUTION WIDTH 12.9 % (11.7-14.4)
[2022-07-28 06:43] LABS: ALBUMIN/GLOBULIN RATIO 0.7 (0.8-2.0); ANION GAP 14.4 mmol/L (8-16); CREATININE, SERUM 0.87 mg/dL (0.72-1.25); POTASSIUM 3.4 mmol/L (3.5-5.1)
[2022-07-28] MEDS: INSULIN LISPRO 100 UNIT/1 ML 3ML VIAL SQ SCH ×4 (08:28→21:12)
[2022-07-28] MEDS ORDERED: ALBUTEROL SULFATE HFA 8GM INHALATION AEROSOL INH PRN (10:30)
[2022-07-28] MEDS: FUROSEMIDE INJ 10 MG/ML 2 ML VIAL IV SCH (12:23)
[2022-07-28] MEDS ORDERED: SODIUM CHLORIDE 0.9% 250ML 250 ML ONE (15:24)
[2022-07-28] MEDS: BENZONATATE 100 MG CAP PO SCH (15:24)
[2022-07-28] MEDS: CLINDAMYCIN 600MG / 50ML 50 ML IV SCH ×2 (15:24→21:04)
[2022-07-28] MEDS: METFORMIN HCL 500 MG TAB PO SCH (15:26)
[2022-07-28] MEDS: LISINOPRIL 20 MG TAB PO SCH (15:26)
[2022-07-28] MEDS: HYDROCODONE/APAP 10MG-325MG TAB PO PRN (15:35)
[2022-07-29] VITALS (7 sets, daily range): BP systolic 103–120; BP diastolic 58–74
[2022-07-29] MEDS: CLINDAMYCIN 600MG / 50ML 50 ML IV SCH ×3 (05:02→22:29)
[2022-07-29 06:30] LABS: ANION GAP 17.9 mmol/L (8-16); CALCIUM 9.4 mg/dL (8.4-10.2); POTASSIUM 3.9 mmol/L (3.5-5.1)
[2022-07-29] MEDS: METFORMIN HCL 500 MG TAB PO SCH ×2 (09:33→17:13)
[2022-07-29] MEDS: BENZONATATE 100 MG CAP PO SCH ×2 (09:33→17:00)
[2022-07-29] MEDS: POTASSIUM CHLORIDE 20 MEQ TAB CR PO SCH (09:34)
[2022-07-29] MEDS: FUROSEMIDE INJ 10 MG/ML 2 ML VIAL IV SCH ×2 (09:34→12:34)
[2022-07-29] MEDS: SIMVASTATIN 20 MG TAB PO SCH (09:34)
[2022-07-29] MEDS: LISINOPRIL 20 MG TAB PO SCH ×2 (09:34→17:13)
[2022-07-29] MEDS: INSULIN LISPRO 100 UNIT/1 ML 3ML VIAL SQ SCH ×4 (09:57→22:25)
[2022-07-29] MEDS ORDERED: METOPROLOL TART25 MG PO (12:30)
[2022-07-29] MEDS ORDERED: ASPIRIN81 MG PO (12:30)
[2022-07-29] MEDS ORDERED: OMEPRAZOLE40 MG PO (12:30)
[2022-07-29] MEDS: HYDROCODONE/APAP 10MG-325MG TAB PO PRN (12:38)
[2022-07-30] VITALS (9 sets, daily range): BP systolic 103–124; BP diastolic 45–72
[2022-07-30] MEDS: CLINDAMYCIN 600MG / 50ML 50 ML IV SCH ×3 (05:12→22:53)
[2022-07-30] MEDS: INSULIN LISPRO 100 UNIT/1 ML 3ML VIAL SQ SCH ×4 (07:30→23:05)
[2022-07-30] MEDS: SIMVASTATIN 20 MG TAB PO SCH (08:33)
[2022-07-30] MEDS: LISINOPRIL 20 MG TAB PO SCH ×2 (08:34→16:50)
[2022-07-30] MEDS: POTASSIUM CHLORIDE 20 MEQ TAB CR PO SCH (08:34)
[2022-07-30] MEDS: METFORMIN HCL 500 MG TAB PO SCH ×2 (08:34→16:49)
[2022-07-30] MEDS: BENZONATATE 100 MG CAP PO SCH ×2 (08:34→16:49)
[2022-07-30] MEDS: FUROSEMIDE INJ 10 MG/ML 2 ML VIAL IV SCH ×2 (08:35→12:22)
[2022-07-30] MEDS ORDERED: ONDANSETRON HCL 4 MG ORAL DISINTEGRATING TAB PO PRN (12:45)
[2022-07-31] VITALS (8 sets, daily range): BP systolic 101–115; BP diastolic 57–80
[2022-07-31] MEDS: CLINDAMYCIN 600MG / 50ML 50 ML IV SCH ×3 (05:44→21:01)
[2022-07-31] MEDS: INSULIN LISPRO 100 UNIT/1 ML 3ML VIAL SQ SCH ×4 (07:30→21:07)
[2022-07-31] MEDS: BENZONATATE 100 MG CAP PO SCH ×2 (08:17→16:23)
[2022-07-31] MEDS: FUROSEMIDE INJ 10 MG/ML 2 ML VIAL IV SCH ×2 (08:17→11:48)
[2022-07-31] MEDS: METFORMIN HCL 500 MG TAB PO SCH ×2 (08:17→16:23)
[2022-07-31] MEDS: SIMVASTATIN 20 MG TAB PO SCH (08:18)
[2022-07-31] MEDS: LISINOPRIL 20 MG TAB PO SCH ×2 (08:18→16:23)
[2022-07-31] MEDS: POTASSIUM CHLORIDE 20 MEQ TAB CR PO SCH (08:18)
[2022-07-31 09:56] LABS: BASOPHILS # (AUTO) 0.1 (0.0-0.1); BASOPHILS % 0.8 % (0.0-1.0); EOSINOPHILS # (AUTO) 0.2 (0.0-0.4); EOSINOPHILS % 2.7 % (0.0-6.0); HEMATOCRIT 45.5 % (38.2-49.6); HEMOGLOBIN 14.5 g/dL (14.0-18.0); LYMPHOCYTES # (AUTO) 1.5 (1.0-3.2); LYMPHOCYTES % 18.5 % (18.0-39.1); MEAN CORPUSCULAR HEMOGLOBIN 26.8 pg (28-32); MEAN CORPUSCULAR HGB CONC 31.9 g/dL (31-35); MEAN CORPUSCULAR VOLUME 84.1 fL (81-99); MONOCYTES # (AUTO) 0.6 (0.2-0.8); MONOCYTES % 7.9 % (4.4-11.3); NEUTROPHILS # (AUTO) 5.5 (2.1-6.9); NEUTROPHILS % 69.6 % (38.7-80.0); PLATELET COUNT 367 x10e3/uL (140-360); RED BLOOD COUNT 5.41 x10e6/uL (4.3-5.7)
[2022-07-31 10:15] LABS: ANION GAP 16.1 mmol/L (8-16); CALCIUM 9.3 mg/dL (8.4-10.2); CREATININE, SERUM 0.99 mg/dL (0.72-1.25); POTASSIUM 4.1 mmol/L (3.5-5.1)
[2022-08-01 00:55] VITALS: BP 106/56
[2022-08-01 05:11] VITALS: BP 129/61
[2022-08-01] MEDS: CLINDAMYCIN 600MG / 50ML 50 ML IV SCH (05:11)
[2022-08-01 08:59] VITALS: BP 118/69
[2022-08-01 09:00] VITALS: BP 118/69
[2022-08-01] MEDS: BENZONATATE 100 MG CAP PO SCH (09:59)
[2022-08-01] MEDS: SIMVASTATIN 20 MG TAB PO SCH (09:59)
[2022-08-01] MEDS: METFORMIN HCL 500 MG TAB PO SCH (09:59)
[2022-08-01] MEDS: FUROSEMIDE INJ 10 MG/ML 2 ML VIAL IV SCH (09:59)
[2022-08-01] MEDS: POTASSIUM CHLORIDE 20 MEQ TAB CR PO SCH (09:59)
[2022-08-01] MEDS: LISINOPRIL 20 MG TAB PO SCH (10:00)
[2022-08-01] MEDS: INSULIN LISPRO 100 UNIT/1 ML 3ML VIAL SQ SCH (10:09)
[2022-08-01] MEDS ORDERED: CLINDAMYCIN HCL 150 MG CAP PO SCH (12:30)
== END 2022-08-01 13:03 | disposition home or self-care (01) | DRG 300 ==
LOC: ER 06:59 → ERHOLD 08:43 → MED/SURG2 10:29
PROVIDERS: ADMIT Internal Medicine; ATTEND Internal Medicine
DX: E11.51 Type 2 diabetes mellitus with diabetic peripheral angiopathy without gangrene (principal); L03.115 Cellulitis of right lower limb; L97.819 Non-pressure chronic ulcer of other part of right lower leg with unspecified severity; Z68.43 Body mass index [BMI] 50.0-59.9, adult; E11.622 Type 2 diabetes mellitus with other skin ulcer; E11.65 Type 2 diabetes mellitus with hyperglycemia; Z79.4 Long term (current) use of insulin; E66.01 Morbid (severe) obesity due to excess calories; I87.8 Other specified disorders of veins; I89.0 Lymphedema, not elsewhere classified; I87.2 Venous insufficiency (chronic) (peripheral); Z88.0 Allergy status to penicillin
CPT/HCPCS: 36415; 80048; 80053; 82948; 83036; 83605; 83880; 84443; 85025; 94799; 96372; 99252; 99284; J0692; J1940; J7040; J7050

== ENCOUNTER 2023-11-04 06:14 | Emergency (ER) | payer MEDICARE ==
[~2023-11-04] VITALS: Ht 182.9 cm; Wt 186.0 kg
[~2023-11-04 06:14] MED LIST changes: +ASPIRIN81 MG PO; +METOPROLOL TART25 MG PO; +OMEPRAZOLE40 MG PO
[2023-11-04 06:55] VITALS: PULSE 86; RESP 17; TEMP 98.2; O2SAT 98
[2023-11-04] MEDS ORDERED: DOXYCYCLINE HY100 MG PO (06:58)
== END 2023-11-04 07:05 | disposition home or self-care (01) ==
LOC: ER 06:27
DX: L73.9 Follicular disorder, unspecified (principal); I10 Essential (primary) hypertension; E78.5 Hyperlipidemia, unspecified; E11.9 Type 2 diabetes mellitus without complications; Z79.84 Long term (current) use of oral hypoglycemic drugs
CPT/HCPCS: 99282

== ENCOUNTER 2024-05-29 06:40 | Emergency (ER) | payer MEDICARE ==
[~2024-05-29] VITALS: Ht 182.9 cm; Wt 186.0 kg
[2024-05-29 06:50] VITALS: PULSE 98; RESP 20; TEMP 98.6; O2SAT 98
[2024-05-29] MEDS ORDERED: OFLOXACIN5 ML OT (07:16)
== END 2024-05-29 07:22 | disposition home or self-care (01) ==
LOC: ER 06:43
DX: T16.1XXA Foreign body in right ear, initial encounter (principal); I10 Essential (primary) hypertension; E11.9 Type 2 diabetes mellitus without complications; E78.5 Hyperlipidemia, unspecified
CPT/HCPCS: 99282

== ENCOUNTER 2025-01-22 15:46 | Inpatient (IN) | payer MEDICARE, OTHER ==
[~2025-01-22] VITALS: Ht 182.9 cm; Wt 136.1 kg
[~2025-01-22 15:46] MED LIST changes: +OFLOXACIN5 ML OT
[2025-01-22 17:00] LABS: BASOPHILS % 0.6 % (0.0-1.0); EOSINOPHILS % 0.3 % (0.0-6.0); LYMPHOCYTES % 7.6 % (18.0-39.1); MONOCYTES % 6.7 % (4.4-11.3); NEUTROPHILS % 84.2 % (38.7-80.0); RED CELL DISTRIBUTION WIDTH 12.5 % (11.7-14.4)
[2025-01-22 17:18] LABS: INR 1.01
[2025-01-22 17:27] LABS: EST GLOMERULAR FILTRATION RATE 94.0 ML/MIN (>=60)
[2025-01-22] MEDS: SODIUM CHLORIDE 0.9% 1000ML 1,000 ML IV STA ×2 (17:28→17:29)
[2025-01-22] MEDS: Vancomycin IV 1 GM in SODIUM CHLORIDE 0.9% 250ML 250 ML IV ONE (17:30)
[2025-01-22] MEDS ORDERED: ACETAMINOPHEN 1000 MG/100 ML 100 ML IV ONE (17:32)
[2025-01-22 17:34] LABS: CORONAVIRUS COVID-19 AG NEGATIVE (NEGATIVE)
[2025-01-22] MEDS: ACETAMINOPHEN 1000 MG/100 ML IV STA (18:46)
[2025-01-22] MEDS: CEFTRIAXONE 2 GM in SODIUM CHLORIDE 0.9% 100 ML IV ONE (18:54)
[2025-01-22 19:41] LABS: LEUKOCYTE ESTERASE ,URINE TRACE (NEGATIVE); PROTEIN,URINE DIPSTICK NEGATIVE (NEGATIVE)
[2025-01-22 19:42] LABS: URINE UROBILINOGEN 1 mg/dL (0.2 - 1)
[2025-01-22 19:48] LABS: WBC,URINE (MAN) 0-5 /HPF (0-5)
[2025-01-22 19:49] LABS: EPITHELIAL CELLS,URINE RARE /LPF
[2025-01-22] MEDS ORDERED: ONDANSETRON HCL INJ 2MG/ML 2ML 2 MG/ML VIAL IV PRN (20:15)
[2025-01-22] MEDS ORDERED: DEXTROSE 50% SYRINGE 50 ML IV PRN (20:15)
[2025-01-22] MEDS ORDERED: ACETAMINOPHEN 1000 MG/100 ML IV PRN (20:15)
[2025-01-22] MEDS: INSULIN REGULAR, HUMAN 100 UNIT/1 ML IV ONE (20:22)
[2025-01-22] MEDS ORDERED: IOPAMIDOL 370 MG/ML 100 ML INFUS..BTL INJ ONE (20:29)
[2025-01-22] MEDS: CEFEPIME 2 GM in SODIUM CHLORIDE 0.9% 100 ML IV SCH (20:51)
[2025-01-22] MEDS: SODIUM CHLORIDE 0.9% 1000ML 1,000 ML IV SCH (20:51)
[2025-01-22 20:56] VITALS: PULSE 91; RESP 20; TEMP 98.9
[2025-01-22] MEDS: INSULIN REGULAR, HUMAN 100 UNIT/1 ML SQ SCH (22:13)
[2025-01-22 22:15] VITALS: PULSE 93; RESP 18; O2SAT 99
[2025-01-22 22:17] VITALS: BP 120/74; PULSE 93; RESP 20; TEMP 97.5; O2SAT 99
[2025-01-22 22:45] VITALS: BP 120/74; PULSE 93; RESP 20; TEMP 97.5
[2025-01-23] VITALS (9 sets, daily range): BP systolic 116–149; BP diastolic 67–84; PULSE 89–104; RESP 18–20; TEMP 97.2–99.1; O2SAT 97–100
[2025-01-23] MEDS ORDERED: ACETAMINOPHEN 325 MG TAB PO PRN
[2025-01-23] MEDS ORDERED: ALBUTEROL 90 MCG/ACT INHALER INH PRN
[2025-01-23] MEDS ORDERED: HYDROCODONE/APAP 10MG-325MG TAB PO PRN
[2025-01-23] MEDS: Vancomycin IV 1.5 GM in SODIUM CHLORIDE 0.9% 250ML 250 ML IV SCH (06:24)
[2025-01-23 08:39] LABS: BASOPHILS % 0.4 % (0.0-1.0); EOSINOPHILS % 0.9 % (0.0-6.0); LYMPHOCYTES % 14.0 % (18.0-39.1); MONOCYTES % 8.7 % (4.4-11.3); NEUTROPHILS % 75.5 % (38.7-80.0); RED CELL DISTRIBUTION WIDTH 12.5 % (11.7-14.4)
[2025-01-23 09:00] LABS: EST GLOMERULAR FILTRATION RATE 104.0 ML/MIN (>=60)
[2025-01-23] MEDS: LISINOPRIL 20 MG TAB PO SCH (09:32)
[2025-01-23] MEDS: BENZONATATE 100 MG CAP PO SCH (09:32)
[2025-01-23] MEDS: PANTOPRAZOLE SOD 40 MG TABEC PO SCH (09:32)
[2025-01-23] MEDS: METOPROLOL TARTRATE 25 MG TAB PO SCH (09:33)
[2025-01-23] MEDS ORDERED: DEXTROSE 50% SYRINGE 50 ML IV PRN (12:15)
[2025-01-23] MEDS: INSULIN LISPRO 100 UNIT/1 ML 3ML VIAL SQ SCH ×2 (12:45→12:46)
[2025-01-23] MEDS: INSULIN GLARGINE 100 UNITS/ML VIAL SQ ONE (12:47)
[2025-01-23] MEDS: INSULIN GLARGINE 100 UNITS/ML VIAL SQ SCH (21:00)
[2025-01-24] VITALS (11 sets, daily range): BP systolic 111–149; BP diastolic 51–85; PULSE 83–99; RESP 18–20; TEMP 97.5–99.4; O2SAT 96–100
[2025-01-24] MEDS: Morphine 4mg INJECTION 4 MG/ML INJ IV PRN (09:21)
[2025-01-24] MEDS ORDERED: ROCURONIUM BROMIDE 1 ML IV ONE (15:44)
[2025-01-24] MEDS ORDERED: PROPOFOL IV EMULSION 10 MG/ML 20 ML VIAL ONE (15:44)
[2025-01-24] MEDS ORDERED: SUCCINYLCHOLINE CHLORIDE 20 MG/ML 10ML VIAL ONE (15:44)
[2025-01-24] MEDS ORDERED: LIDOCAINE HCL 2% LOCAL INJ 5 ML SDV VIAL INJ ONE (15:44)
[2025-01-24] MEDS ORDERED: FENTANYL CITRATE/PF 100MCG/2 ML INJ ONE ×2 (15:44→16:25)
[2025-01-24] MEDS ORDERED: METOCLOPRAMIDE HCL 10 MG/2ML VIAL ONE (16:21)
[2025-01-24] MEDS ORDERED: ONDANSETRON HCL INJ 2MG/ML 2ML 2 MG/ML VIAL ONE (16:21)
[2025-01-24] MEDS ORDERED: SUGAMMADEX SODIUM 200 MG/2 ML VIAL IV ONE (16:31)
[2025-01-24] MEDS: VANCOMYCIN 1.5 GM/300 ML (PEG) 300 ML IV SCH (18:35)
[2025-01-24] MEDS ORDERED: Vancomycin IV 1.5 GM in SODIUM CHLORIDE 0.9% 250ML 250 ML IV SCH (20:00)
[2025-01-25] VITALS (10 sets, daily range): BP systolic 112–143; BP diastolic 67–77; PULSE 65–91; RESP 17–20; TEMP 97.3–98.2; O2SAT 97–100
[2025-01-25 08:36] LABS: BASOPHILS % 0.6 % (0.0-1.0); EOSINOPHILS % 1.4 % (0.0-6.0); LYMPHOCYTES % 16.8 % (18.0-39.1); MONOCYTES % 7.7 % (4.4-11.3); NEUTROPHILS % 73.0 % (38.7-80.0); RED CELL DISTRIBUTION WIDTH 12.5 % (11.7-14.4)
[2025-01-25 08:55] LABS: EST GLOMERULAR FILTRATION RATE 106.0 ML/MIN (>=60)
[2025-01-25] MEDS: ACETAMINOPHEN/CODEINE 300MG - 30MG TAB PO PRN (21:55)
[2025-01-26] VITALS (8 sets, daily range): BP systolic 116–126; BP diastolic 60–72; PULSE 68–87; RESP 16–20; TEMP 97.4–98.6; O2SAT 95–100
[2025-01-26] MEDS: NYSTATIN 15 GM POWDER UD BTL TOP SCH (09:12)
[2025-01-26] MEDS: INSULIN LISPRO 100 UNIT/1 ML 3ML VIAL SQ SCH ×2 (17:19→17:20)
[2025-01-26] MEDS: INSULIN GLARGINE 100 UNITS/ML VIAL SQ SCH (21:59)
[2025-01-27] VITALS (9 sets, daily range): BP systolic 117–133; BP diastolic 66–83; PULSE 66–76; RESP 16–20; TEMP 97.1–98.1; O2SAT 99–100
[2025-01-27 06:36] LABS: BASOPHILS % 0.9 % (0.0-1.0); EOSINOPHILS % 4.0 % (0.0-6.0); LYMPHOCYTES % 28.0 % (18.0-39.1); MONOCYTES % 8.3 % (4.4-11.3); NEUTROPHILS % 57.8 % (38.7-80.0); RED CELL DISTRIBUTION WIDTH 12.4 % (11.7-14.4)
[2025-01-27 07:09] LABS: EST GLOMERULAR FILTRATION RATE 107.0 ML/MIN (>=60)
[2025-01-27] MEDS: CEFEPIME 2 GM in SODIUM CHLORIDE 0.9% 100 ML IV SCH (09:12)
[2025-01-27] MEDS ORDERED: Morphine 4mg INJECTION 4 MG/ML INJ IV PRN (12:15)
[2025-01-27] MEDS: INSULIN LISPRO 100 UNIT/1 ML 3ML VIAL SQ SCH (16:58)
[2025-01-28] VITALS (11 sets, daily range): BP systolic 116–136; BP diastolic 63–88; PULSE 59–75; RESP 16–20; TEMP 97.4–98.4; O2SAT 96–100
[2025-01-28] MEDS: INSULIN LISPRO 100 UNIT/1 ML 3ML VIAL SQ SCH (17:19)
[2025-01-29] VITALS: BP 125/69; PULSE 62; RESP 15; TEMP 97.7; O2SAT 97
[2025-01-29 04:42] VITALS: BP 143/66; PULSE 61; RESP 15; TEMP 97.5; O2SAT 100
[2025-01-29 07:50] VITALS: BP 142/72; PULSE 64; RESP 18; TEMP 97.6; O2SAT 100
[2025-01-29 08:29] VITALS: BP 142/72; PULSE 64
== END 2025-01-29 11:05 | disposition home health service (06) | DRG 853 ==
LOC: ER 16:12 → ERHOLD 20:08 → MED/SURG3 21:16
PROVIDERS: ADMIT Internal Medicine; ATTEND Internal Medicine
PROC: 0V950ZZ Drainage of Scrotum, Open Approach (ICD-10-PCS; principal; 2025-01-24 16:02)
DX: A41.9 Sepsis, unspecified organism (principal); E11.10 Type 2 diabetes mellitus with ketoacidosis without coma; E87.1 Hypo-osmolality and hyponatremia; Z68.41 Body mass index [BMI] 40.0-44.9, adult; N45.2 Orchitis; R65.20 Severe sepsis without septic shock; E11.65 Type 2 diabetes mellitus with hyperglycemia; E78.5 Hyperlipidemia, unspecified; R53.1 Weakness; I87.8 Other specified disorders of veins; I10 Essential (primary) hypertension; I89.0 Lymphedema, not elsewhere classified; N47.1 Phimosis; R31.29 Other microscopic hematuria; R81 Glycosuria; E66.813 Obesity, class 3; K80.20 Calculus of gallbladder without cholecystitis without obstruction; B37.2 Candidiasis of skin and nail; B95.2 Enterococcus as the cause of diseases classified elsewhere; Z79.51 Long term (current) use of inhaled steroids; Z11.52 Encounter for screening for COVID-19; Z79.84 Long term (current) use of oral hypoglycemic drugs; Z88.0 Allergy status to penicillin; Z91.148 Patient's other noncompliance with medication regimen for other reason; Z79.4 Long term (current) use of insulin; Z79.82 Long term (current) use of aspirin; Z79.85 Long-term (current) use of injectable non-insulin antidiabetic drugs
CPT/HCPCS: 36415; 71045; 74177; 76705; 76870; 80048; 80053; 80202; 81001; 82948; 83036; 83605; 83690; 83735; 83880; 84439; 84443; 84484; 85025; 85610; 85730; 87040; 87071; 87075; 87086; 87186; 87205; 93005; 93976; 94799; 99252; 99285; J0330; J0692; J0696; J2003; J2270; J2405; J2470; J2765; J3373; J7030; J7050; Q9967